=== PATIENT | female | born 1980 | race Two or more races ===

== ENCOUNTER 2021-09-18 11:44 | Outpatient (REF) | payer MEDICAID, SELFPAY ==
--- NOTE | ~2021-09-18 | XR_ITS ---
EXAMINATION: XR WRIST, LEFT CLINICAL INFORMATION: Left wrist pain. COMPARISON: None TECHNIQUE: PA, lateral, and oblique views of the left wrist. FINDINGS: The bones and soft tissues are normal. No fracture. Alignment is anatomic with normal joint spaces. No erosions or abnormal soft tissue calcifications. XR/XR wrist LT min 3V IMPRESSION: Normal left wrist.
== END 2021-09-18 11:45 | disposition home or self-care (01) ==
LOC: HO.XRAY 11:44
PROVIDERS: Visit Provider General Practice
DX: M25.532 Pain in left wrist (principal)
CPT/HCPCS: 73110

== ENCOUNTER 2024-12-03 15:58 | Outpatient (REF) | payer MEDICAID, SELFPAY ==
--- OUTSIDE RECORDS SUMMARY | 2024-12-03 16:01 | XMS_ITS ---
Author Organization [employer] [facility] Address [address] [id number] Care Team Providers Care Break Out Worker Name Role Phone FRANKLINUZMA Cantu Unavailable [phone] Allergies No Known Allergies REASON FOR VISIT Depo Medications Medication SIG (Take, Route, Frequency, Duration) Notes Start Date End Date Status Nitrofurantoin Monohyd Macro 100 MG 1 capsule Orally Twice a day (every 12 hrs( for 7 days 04/22/2024 Not-Taking Depo-Provera 150 MG/ML 1 mL Intramuscula r Every 13-15 weeks for 91 days Active Social History Sex Assigned At : Social History Observation Description Sex Assigned At Female Section Notes: Declines aptma Vital Signs Blood pressure systolic 120 mm Hg 10/28/19 25 Blood pressure diastolic 54 mm Hg 025 Height 60 in 10/28/2024 Weight 166.2 lbs 10/28/2024 BMI 32.46 kg/m2 10/28/2024 Encounters Encounter Location Date Provider Diagnosis [address] [id number] 10/28/2024 UZMA REID Encounter for surveillance of injectable contraceptive Z30.42 Assessments Encounter Date Diagnosis (ICD Code) Assessment Notes Treatment Notes Treatment Clinical Notes Section Notes 10/28/2024 Encounter for surveillance of injectable contraceptive (ICD-10 - Z30.42) Depo administered in office without issue. Return in 13-15 weeks for repeat injection. Reviewed clt's questions and concerns. There is no definite limit on how long someone can stay on Depo. Used to be recommended to limit to 2 years. Bone density does decrease with Depo use but studies find that it returns once off of the method. Did review that clt may want to consider coming off of Depo prior to typical menopause age to allow bone denisity to return. Reviewed importance of Ca+ and Vit D supplementation and weight bearing exercise. Reviewed some observational studies have found an association with some types of rare brain tumors in association with Depo use but that event rates are very low 0.05 vs 0.01 (non users) percent (per UpToDate). No new precautions have been made by FDA with Depo use around this. Spent 15 minutes doing the following: Chart Prep Obtaining/revi dolan history Performing medically necessary exam Counseling/Controller Instructor rdination of Care Documenting the visit Educating the patient Ordering medication/vivien t/procedures Established Patient: 03017 10 Minutes Plan Of Treatment Medication Medication Name Sig Start Date Stop Date Notes Depo-Provera 150 MG/ML 1 mL Intramuscula r Every 13-15 weeks for 91 days Treatment Notes Assessment Notes Encounter for surveillance o f injectable contraceptive Depo administered in office without issue. Return in 13-15 weeks for repeat injection. Reviewed clt's questions and concerns. There is no definite limit on how long someone can stay on Depo. Used to be recommended to limit to 2 years. Bone density does decrease with Depo use but studies find that it returns once off of the method. Did review that clt may want to consider coming off of Depo prior to typical menopause age to allow bone denisity to return. Reviewed importance of Ca+ and Vit D supplementation and weight bearing exercise. Reviewed some observational studies have found an association with some types of rare brain tumors in association with Depo use but that event rates are very low 0.05 vs 0.01 (non users) percent (per UpToDate). No new precautions have been made by FDA with Depo use around this. Next Appt Details Follow Up: next depo due 01/21 to 02/10, Reason: depo, annual/pap Provider Name:UZMA REID, 06/2025 11:00:00 AM, [address] [place] [address], [phone], Medications Administered Medication Instructions Date of Administration Dosage Notes Medroxyprogesterone Acetate 10/28/2024 150 mg Progress Notes * Malick AGUDELO:1980 (44 yo F)Acc No.[id number]:10/28/2024 Progress Notes Patient:Qasim MCQUEEN Provider:?UZMA REDI :1980???Age:44 Y???Sex:Female D ate:10/28/2024 Address:[address] [place], [place] [id number] Subjective: * Chief Complaints: * ???Depo * HPI: ???Visit Narrative:?Reason for the visit:?Depo visit.?Current form of control:?Depo.?Presenting Symptoms:?Concerns about the depo causing brain tumors/ bone disease.?LMP:?06/25/24 - spotting only.?Last date of UPI:?10/05/24.?Other Notes for the Clinician:?Client notified that the depo is a short term recomended bc method for abut 2 years. Client ok with being on depo for the whole 2 years then stopping to take a break or revisit a new method when thew time comes.?Declines testing On time Depo today. Happy with method and would like to continue.?Over due for repeat pap after abn pap and DEBRA 1 on colpo. * ROS:?General/Constitutional:?Denies?Headache.?Denies?Weight gain.?Denies?Weight loss.?Breast:?Denies?Breast pain.?Gastrointestinal:?Denies?Nausea.?Psychiatric:?Denies?Mood concerns.? * Medical History:? * Reconstructive Surgeon History:?Abnormal pap smear:?colpo - DEBRA 1, repeat 1 year at .? control:?Depo.?Last menstrual period:?06/25/2024.?Last pap smear date:?02/2023 colpo DEBRA 1. Repeat in a year01/30/23 ASCUS, pos additional high risk HPV subtypes.?Menarche: ?Age of menarche?13 ???Periods:?every month, normal blood loss.?Sexual activity:?currently sexually active, with men.?Sexually Transmitted Diseases (STDs):?none.?Unprotected sex in the last 5 days?:?No.?Unprotected sex in the past 10 days?:?No.? * OB History:?Total pregnancies:?2.?Total living children:?2.?C section(s):?2.? # 1:?Primary .? # 2:?Repeat .? * Surgical History:?No Surgica l History documented. * Hospitalization/Major Diagno stic Procedure:? 08/14/07 * Family History:? Siblings - Diabetes, Heart issues. * Social History:?Food Access:?Food Access?The Client's current access to food is?Secure Food Access ???Housing:?Housing?The client's current living situation is:?stable housing ???Reproductive Life Plan:?Reproductive Life Plan?Do you want to have children??No, I don't want to have children ?How sure are you that you will be able to use your control method without any problems??Very sure ?People's plans change. 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 ?Your sexual activities include:?oral intercourse, vaginal intercourse ?Do you use condoms??No ?Date of last unprotected intercourse:?10/05/2024 ?Number of partners in past 3 months:?1 ?Number of partners in past year:?1 ?Does your partner(s) currently have any STIs??No ???HIV Risk Assessment:?Additional Questions?Is an HIV Risk Assessment being conducted??No ???PrEP for HIV:?PrEP for HIV?Is the client interested in beginning/continuing PrEP for HIV??No ???Relationships:?Relationships?Has the client experienced any of the following:?Client has never experienced harmful relationships ???Human Trafficking:?Human Trafficking?Experienced:?No ???Tobacco Use:?Tobacco Use?Do you/have you used tobacco??No ?Tobacco Smoking Status?Unknown if ever smoked ???Drugs/Alcohol:?Drug/Alcohol Use?Do you or have you used drugs??No ?Do you or have you used alcohol??Yes, currently Occasional use ???Counseling Provided:?Counseling Provided?Please indicate the length of time, in minutes, that counseling was provided.?5 ?Counseling Was Provided By:?lydper ???Declines aptma. * Medications:?TakingDepo-Prov era 150 MG/ML Suspension 1 mL Intramuscular Every 13-15 weeks Taking Depo-Provera 150 MG/ML Suspension 1 mL Intramuscular Every 13-15 weeks Not-Taking/PRNNitrofurantoin Monohyd Macro 100 MG Capsule 1 capsule Orally Twice a day (every 12 hrs( Medication List reviewed and reconciled with the patientNot-Taking/PRN Nitrofurantoin Monohyd Macro 100 MG Capsule 1 capsule Orally Twice a day (every 12 hrs( Medication List reviewed and reconciled with the patient * Allergies:?N.K.D.A.no[Allerg ies Verified] Objective: * Vitals:?BP:120/54mm Hg, Ht: 60 in, Wt:166.2lbs, BMI:32.46Index, Ht-cm: 152.4, Wt-k.39. * Examination: ???General Examination: ?GENERAL APPEARANCE:?pleasant, in no acute distress.?SKIN:?no suspicious lesions, warm and dry.?NEUROLOGIC:?alert and oriented.? Assessment: * Assessment: 1.?Encounter for surveillanc e of injectable contraceptive - Z30.42 (Primary)??? Spent 15 minutes doing the f ollowing: Chart Prep Obtaining/reviewing history Performing medically necessary exam Counseling/Coordination of Care Documenting the visit Educating the patient Ordering medication/test/procedures Established Patient: 67074 10 Minutes Plan: * Treatment: * Therapeutic Injections:? Medroxyprogesterone Acetate : 150 mg (Route: Intramuscular) given by UZMA REID CNM on left deltoid (Encounter for surveillance of injectable contraceptive) * Procedure Codes:?J1050 Depo 150 mg * Follow Up:?next depo due 01/21 to 02/10 (Reason: depo, annual/pap) * Billing Information: * Visit Code:? 79635 Existing - Minimal Complexity (IN USE). * Procedure Codes:? J1050 Depo 150 mg. * Sign off status: Completed true * Provider:UBALDO REID Date:?10/28/2024 Generated for Gato pierce/Keysha/eTsuryaitting on:?12/03/2024 09:14 AM EST History and Physical Notes * HPI (History of Present Illness) Category Sub-Category Detail Notes Category Not es Visit Narrative Reason for the visit: Depo visit Declines testing On time Depo today. Happy with method and would like to continue. Over due for repeat pap after abn pap and DEBRA 1 on colpo Current form of control: Depo Presenting Symptoms: Concerns about the depo causing brain tumors/ bone disease Other Notes for the Clinician: Client no tified that the depo is a short term recomended bc method for abut 2 years. Client ok with being on depo for the whole 2 years then stopping to take a break or revisit a new method when thew time comes LMP: 06/25/24 - spotting on ly Last date of UPI: 10/05/24 Examination Category Sub-Category Detail Notes Category Not es General Examination GENERAL APPEARANCE: pleasant, in n o acute distress NEUROLOGIC: alert and oriented SKIN: no suspicious lesion s, warm and dry
--- OUTSIDE RECORDS SUMMARY | 2024-12-03 16:01 | XMS_ITS ---
Author Organization [facility] Address [address] [id number] Care Team Providers Care Pmo Lead Name Role Phone UZMA REID Unavailable [phone] Allergies No Known Allergies Results Component Value Reference Range Notes HBsAg Screen-[id number] Reviewed date:07/20/2024 11:50:07 AM Interpretation:Negative Performing Lab:[facility], [address], [address], [place], Phone - [phone], Director - [facility] Notes/Report: Clinical Information:SRC:Vaginal HBsAg Screen Negative Negative Hepatitis B Surf Ab Quant-[id number] Reviewed date:07/20/2024 11:21:32 AM Interpretation:Not Immune Performing Lab:[facility] [place], [address], [address], [place], Phone - [phone], Director - [facility] Notes/Report: Clinical Information:SRC:Vaginal Hepatitis B Surf Ab Quant <3.5 Immunity>10 mIU /mL Status of Immunity Anti-HBs Level Inconsistent with Immunity 0.0 - 10.0 Consistent with Immunity >10.0 T pallidum Screening [place] -[id number] Reviewed date:07/20/2024 11:50:37 AM Interpretation:Negative Performing Lab:[facility] [place], [address], [address], [place], Phone - [phone], Director - [facility] Notes/Report: Clinical Information:SRC:Vaginal T pallidum Antibodies Non Reactive Non Reactive HIV Ab/p24 Ag with Reflex-[id number] Reviewed date:07/20/2024 11:50:29 AM Interpretation:Negative Performing Lab:[facility] [place], [address], [address], [place], Phone - [phone], Director - [facility] Notes/Report: Clinical Information:SRC:Vaginal HIV Ab/p24 Ag Screen Non Reactive Non Reactive HIV-1/HIV-2 antibodies and HIV-1 p24 antigen were NOT detected. There is no laboratory evidence of HIV infection. HIV Negative Ct, Ng, Trich vag by RUTH-[id number] Reviewed date:07/22/2024 09:25:40 AM Interpretation:Negative Performing Lab:[facility] [place], [address], [address], [place], Phone - [phone], Director - [facility] Notes/Report: Clinical Information:SRC:Vaginal Chlamydia by RUTH Negative Negative Gonococcus by RUTH Negative Negative Trich vag by RUTH Negative Negative HCV Antibody-[id number] Reviewed date:07/20/2024 11:50:17 AM Interpretation:Negative Performing Lab:[facility] [place], [address], [address], [place], Phone - [phone], Director - [facility] Notes/Report: Clinical Information:SRC:Vaginal Hep C Virus Ab Non Reactive Non Reactive HCV antibody alone does not differentiate between previously resolved infection and active infection. Equivocal and Reactive HCV antibody results should be followed up with an HCV RNA test to support the diagnosis of active HCV infection. REASON FOR VISIT Depo Medications Medication SIG (Take, Route, Frequency, Duration) Notes Start Date End Date Status Depo-Provera 150 MG/ML 1 mL Intramuscula r Every 13-15 weeks for 91 days Active Nitrofurantoin Monohyd Macro 100 MG 1 capsule Orally Twice a day (every 12 hrs( for 7 days 04/22/2024 Active Social History Sex Assigned At : Social History Observation Description Sex Assigned At Female Section Notes: Aptima/ bw Vital Signs Blood pressure systolic 122 mm Hg 07/17/20 24 Blood pressure diastolic 70 mm Hg 024 Height 60 in 07/17/2024 Weight 160.8 lbs 07/17/2024 BMI 31.4 kg/m2 07/17/2024 Encounters Encounter Location Date Provider Diagnosis [address] [phone] 07/17/2024 UZMA REID Encounter for surveillance of injectable contraceptive Z30.42 ; Encounter for screening for infections with a predominantly sexual mode of transmission Z11.3 ; Encounter for screening for human immunodeficiency virus [HIV] Z11.4 ; Screening for other viral diseases Z11.59 and Other problems related to lifestyle Z72.89 Assessments Encounter Date Diagnosis (ICD Code) Assessment Notes Treatment Notes Treatment Clinical Notes Section Notes 07/17/2024 Encounter for surveillance of injectable contraceptive (ICD-10 - Z30.42) On time Depo today. No CI's to continue with Depo today. Need 2 out of 3 Sections from A-C Section A) Problems (only need one from below) Section B) Data (need at least one of the following categories in this section) Category 1: (Choose three of the following): Order Unique tests Section C) Risk (any one of the following) Prescription drug management (this counts for the whole section) 07/17/2024 Encounter for screening for infections with a predominantly sexual mode of transmission (ICD-10 - Z11.3) Discussed STI risks, screenings that are available through [facility] and safe sex. For Hep B and C screening today. Clt aware of lab processing times and how to view results on portal and how positive results will be communicated Need 2 out of 3 Sections from A-C Section A) Problems (only need one from below) Section B) Data (need at least one of the following categories in this section) Category 1: (Choose three of the following): Order Unique tests Section C) Risk (any one of the following) Prescription drug management (this counts for the whole section) 07/17/2024 Encounter for screening for human immunodeficiency virus [HIV] (ICD-10 - Z11.4) Need 2 out of 3 Sections from A-C Section A) Problems (only need one from below) Section B) Data (need at least one of the following categories in this section) Category 1: (Choose three of the following): Order Unique tests Section C) Risk (any one of the following) Prescription drug management (this counts for the whole section) 07/17/2024 Screening for other viral diseases (ICD-10 - Z11.59) Need 2 out of 3 Sections from A-C Section A) Problems (only need one from below) Section B) Data (need at least one of the following categories in this section) Category 1: (Choose three of the following): Order Unique tests Section C) Risk (any one of the following) Prescription drug management (this counts for the whole section) 07/17/2024 Other problems related to lifestyle (ICD-10 - Z72.89) Need 2 out of 3 Sections from A-C Section A) Problems (only need one from below) Section B) Data (need at least one of the following categories in this section) Category 1: (Choose three of the following): Order Unique tests Section C) Risk (any one of the following) Prescription drug management (this counts for the whole section) 07/17/2024 Other Need 2 out of 3 Sections from A-C Section A) Problems (only need one from below) Section B) Data (need at least one of the following categories in this section) Category 1: (Choose three of the following): Order Unique tests Section C) Risk (any one of the following) Prescription drug management (this counts for the whole section) Plan Of Treatment Medication Medication Name Sig Start Date Stop Date Notes Depo-Provera 150 MG/ML 1 mL Intramuscula r Every 13-15 weeks for 91 days Treatment Notes Assessment Notes Encounter for surveillance o f injectable contraceptive On time Depo today. No CI's to continue with Depo today. Encounter for screening for infections with a predominantly sexual mode of transmission Discussed STI risks, screenings that are available through [facility] and safe sex. For Hep B and C screening today. Clt aware of lab processing times and how to view results on portal and how positive results will be communicated Next Appt Details Follow Up: Next Injection Du e 10/10 to 10/30, Reason: Provider Name:UZMA REID, 06/2025 11:00:00 AM, [address] [place] [address], [place], [place], [phone], Medications Administered Medication Instructions Date of Administration Dosage Notes Medroxyprogesterone Acetate 07/17/2024 150 mg Progress Notes * Qasim ENGLISHDOB:1980 (43 yo F)Acc No.[id number]:07/17/2024 Progress Notes Patient:?Qasim ENGLISH Provider:?UZMA REID :1980???Age:43 Y???Sex:Female D ate:07/17/2024 Address:[address] [place], [place] [address] [id number] Subjective: * Chief Complaints: * ???Depo * HPI: ???Visit Narrative:?Reason for the visit:?Depo visit/ Routine testing?.?Current form of control:?Depo?.?Presenting Symptoms:?No concerns.?LMP:?06/25/2024.?Last date of UPI:?06/09/24.?Aptima/ bw In window Depo today. No concerns. Tx'd for UTI back in April, symptoms have resolved. Would like STI screening today. Concerns for possible outside partners. No symptoms of concern. * ROS:?General/Constitutional:?Comments?Has no complaints.? * Medical History:? 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 control:?Depo.?Last menstrual period:?06/25/2024.?Last pap smear date:?02/2023 colpo [...] ?Sexually active with:?Men ?Number of male partners?1 ?Your sexual activities include:?oral intercourse, vaginal intercourse ?Date of last unprotected intercourse:?06/09/2024 ?Number of partners in past 3 months:?1 ?Number of partners in past year:?1 ?Does your partner(s) currently have any STIs??No ???HIV Risk Assessment:?Additional Questions?Is an HIV Risk Assessment being conducted??Yes ?Have you been tested for HIV before??Yes ?Did you have a blood transfusion prior to 1985??No ?Do you have an unlicensed body piercing or tattoo??No ???PrEP for HIV:?PrEP for HIV?Is the client interested in beginning/continuing PrEP for HIV??No ???Relationships:?Relationships?Has the client experienced any of the following:?Client has never experienced harmful relationships ???Human Trafficking:?Human Trafficking?Experienced:?No ???Tobacco Use:?Tobacco Use?Do you/have you used tobacco??No ?Tobacco Smoking Status?Unknown if ever smoked ???Drugs/Alcohol:?Drug/Alcohol Use?Do you or have you used drugs??No ?Do you or have you used alcohol??Yes, currently ???Counseling Provided:?Counseling Provided?Please indicate the length of time, in minutes, that counseling was provided.?6 ?Counseling Was Provided By:?lydper ???Aptima/ bw. * Medications:?TakingNitrofura ntoin Monohyd Macro 100 MG Capsule 1 capsule Orally Twice a day (every 12 hrs( Depo-Provera 150 MG/ML Suspension 1 mL Intramuscular Every 13-15 weeks Medication List reviewed and reconciled with the patientTaking Nitrofurantoin Monohyd Macro 100 MG Capsule 1 capsule Orally Twice a day (every 12 hrs( Taking Depo-Provera 150 MG/ML Suspension 1 mL Intramuscular Every 13-15 weeks Medication List reviewed and reconciled with the patient * Allergies:?N.K.D.A.no[Allerg ies Verified] Objective: * Vitals:?BP:122/70mm Hg, Ht: 60 in, Wt:160.8lbs, BMI:31.4Index, Ht-cm: 152.4, Wt- k.94. * Examination: ???General Examination: ?GENERAL APPEARANCE:?in no acute distress,.?SKIN:?no suspicious lesions, warm and dry.?NEUROLOGIC:?alert and oriented.? Assessment: * Assessment: 1.?Encounter for surveillanc e of injectable contraceptive - Z30.42 (Primary)???2.?Encounter for screening for infections with a predominantly sexual mode of transmission - Z11.3???3.?Encounter for screening for human immunodeficiency virus [HIV] - Z11.4???4.?Screening for other viral diseases - Z11.59???5.?Other problems related to lifestyle - Z72.89??? Need 2 out of 3 Sections fro m A-C Section A) Problems (only need one from below) Section B) Data (need at least one of the following categories in this section) Category 1: (Choose three of the following): Order Unique tests Section C) Risk (any one of the following) Prescription drug management (this counts for the whole section) Plan: * Treatment: 2.?Encounter for screening f or infections with a predominantly sexual mode of transmission?LAB: T pallidum Screening [place]-[id number] (Collection Date & Time - 07/17/2024 09:32 AM) ? Value Reference Range ?T pallidum Antibodies Non Reactive N on Reactive - * This lab was reviewed by BUBBA PURVIS on 07/20/2024 at 11:50 AM EDT ?LAB: Ct, Ng, Trich vag by RUTH-[id number] (Collection Date & Time - 07/17/2024 09:32 AM)* ? Value Reference Range ?Chlamydia by RUTH Negative Negati ve - * ?Gonococcus by RUTH Negative Negat marcelo - * ?Trich vag by RUTH Negative Negati ve - * This lab was reviewed by BUBBA PURVIS on 07/22/2024 at 09:25 AM EDT Notes: Discussed STI risks, screenings that are available through [facility] and safe sex. For Hep B and C screening today. Clt aware of lab processing times and how to view results on portal and how positive results will be communicated ??3.?Encounter for screening for human immunodeficiency virus [HIV]?LAB: HIV Ab/p24 Ag with Reflex-[id number] (Collection Date & Time - 07/17/2024 09:32 AM)* ? Value Reference Range ?HIV Ab/p24 Ag Screen Non Reactive No n Reactive - * This lab was reviewed by BUBBA PURVIS on 07/20/2024 at 11:50 AM EDT 4.?Screening for other viral diseases?LAB: HBsAg Screen-[id number] (Collection Date & Time - 07/17/2024 09:32 AM)* ? Value Reference Range ?HBsAg Screen Negative Negative - * This lab was reviewed by BUBBA PURVIS on 07/20/2024 at 11:50 AM EDT ?LAB: Hepatitis B Surf Ab Quant-[id number] (Collection Date & Time - 07/17/2024 09:32 AM)* ? Value Reference Range ?Hepatitis B Surf Ab Quant <3.5 L Immunity>10 - mIU/mL * UZMA REID 07/20/2024 11:21:1 1 AM EDT > Your are not showing immunity to Hep B. You can consider Hep B vaccine if you would like. This can be scheduled with your PCP, pharmacy or sometimes [facility] program has access to Hep B vaccine. Please call with questionsThis lab was reviewed by UZMA REID on 07/20/2024 at 11:21 AM EDT ?LAB: HCV Antibody-[id number] (Collection Date & Time - 07/17/2024 09:32 AM)* ? Value Reference Range ?Hep C Virus Ab Non Reactive Non Reac tive - * This lab was reviewed by BUBBA PURVIS on 07/20/2024 at 11:50 AM EDT * Therapeutic Injections:? Medroxyprogesterone Acetate : 150 mg (Route: Intramuscular) given by UZMA REID CNM on left deltoid (Encounter for surveillance of injectable contraceptive) * Procedure Codes:?J1050 Depo 150 [id number] HIV Counseling/Testing - [facility] ONLY * Follow Up:?Next Injection Du e 10/10 to 10/30 * Billing Information: * Visit Code:? 75131 Existing - Medium Complexity (IN USE). * Procedure Codes:? J1050 Depo 150 mg. [id number] HIV Counseling/Testing - [facility] ONLY. * Sign off status: Completed true * Provider:?UZMA REID Date:?07/17/2024 Generated for Gato pierce/Keysha/Ofelia on:?12/03/2024 04:01 PM EST History and Physical Notes * HPI (History of Present Illness) Category Sub-Category Detail Notes Category Not es Visit Narrative Reason for the visit: Depo visit/ Rout ine testing Aptima/ bw In window Depo today. No concerns. Tx'd for UTI back in April, symptoms have resolved. Would like STI screening today. Concerns for possible outside partners. No symptoms of concern Current form of control: Depo Presenting Symptoms: No concerns LMP: 06/25/2024 Last date of UPI: 06/09/24 Examination Category Sub-Category Detail Notes Category Not es General Examination GENERAL APPEARANCE: in no acute di stress, NEUROLOGIC: alert and oriented SKIN: no suspicious lesion s, warm and dry
--- OUTSIDE RECORDS SUMMARY | 2024-12-03 16:01 | XMS_ITS ---
Author Organization [facility] Address [address] [place] [id number] Care Team Providers Care Clinical Pharmacy Technician Name Role Phone UZMA REID Unavailable [phone] REASON FOR VISIT Depo Social History Sex Assigned At : Social History Observation Description Sex Assigned At Female Encounters Encounter Location Date Provider Diagnosis [address] [phone] UZMA REID Plan Of Treatment Next Appt Details Provider Name:UZMA REID, 06/2025 11:00:00 AM, [address] [place] [address], [phone], Progress Notes * Qasim ENGLISHDOB:1980 (44 yo F)Acc No.[id number]:10/16/2024 Progress Notes Patient:?Qasim ENGLISH Provider:UBALDO REID :1980???Age:43 Y???Sex:Female D ate:10/16/2024 Address:[address] [place] [id number] Subjective: * Chief Complaints: * ???1. Depo. * Medical History:? Objective: * Vitals:? Assessment: Plan: * Treatment: * Billing Information: * Visit Code:? * Procedure Codes:? * Electronic signature of JAGRUTI REID CNM on 12/03/2024 at 04:01 PM EST Sign off status: Pending * Provider:UBALDO REID Date:?10/16/2024 Generated for Gato pierce/Keysha/Ofelia on:?12/03/2024 04:01 PM EST
--- OUTSIDE RECORDS SUMMARY | 2024-12-03 16:01 | XMS_ITS | Patient Health Record ---
Author Organization [facility] Address [address] [id number] Care Team Providers Care Piercing Specialist Name Role Phone UZMA REID Unavailable [phone] MartinezAlissa morocho Unavailable [phone] Allergies No Known Allergies Results Component Value Reference Range Notes Test, Urine Reviewed date:04/22/2024 10:35:18 AM Interpretation:Negative Performing Lab: Notes/Report: Negative Test, Urine neg Lot # [id number] Exp. Date 04/22/2025 Urinalysis Reviewed date:04/28/2024 11:41:00 AM Interpretation:Abnormal Performing Lab: Notes/Report: Abnormal Leukocytes - Nitrates pos Uro 0.2 Protein - pH 6.0 Blood - Spec [place] 1.025 Ketones - Bilirubin - Glucose - Chlamydia/GC Amplification-1 [id number] Reviewed date:04/28/2024 11:48:10 AM Interpretation:Negative Performing Lab:[facility], [address], [address], [place], Phone - [phone], Director - [facility] Notes/Report: Chlamydia trachomatis, RUTH Negative Negative Neisseria gonorrhoeae, RUTH Negative Negative Trich vag by [id number] Reviewed date:04/28/2024 11:48:19 AM Interpretation:Negative Performing Lab:[facility]faro, [address], [address], [place], Phone - [phone], Director - [facility] Notes/Report: Trich vag by RUTH Negative Negative HCV Antibody-[id number] Reviewed date:07/20/2024 11:50:17 AM Interpretation:Negative Performing Lab:[facility] Alfar[facility], [address], [address], [place], Phone - [phone], Director - [facility] Notes/Report: Clinical Information:SRC:Vaginal Hep C Virus Ab Non Reactive Non Reactive HCV antibody alone does not differentiate between previously resolved infection and active infection. Equivocal and Reactive HCV antibody results should be followed up with an HCV RNA test to support the diagnosis of active HCV infection. Ct, Ng, Trich vag by [id number] Reviewed date:07/22/2024 09:25:40 AM Interpretation:Negative Performing Lab:[facility] [place], [address], [address], [place], Phone - [phone], Director - [facility] Notes/Report: Clinical Information:SRC:Vaginal Chlamydia by RUTH Negative Negative Gonococcus by RUTH Negative Negative Trich vag by RUTH Negative Negative HIV Ab/p24 Ag with Reflex-[id number] Reviewed date:07/20/2024 11:50:29 AM Interpretation:Negative Performing Lab:[facility] [place], [address], [address], [place], Phone - [phone], Director - [facility] Notes/Report: Clinical Information:SRC:Vaginal HIV Ab/p24 Ag Screen Non Reactive Non Reactive HIV-1/HIV-2 antibodies and HIV-1 p24 antigen were NOT detected. There is no laboratory evidence of HIV infection. HIV Negative T pallidum Screening [place] -[id number] Reviewed date:07/20/2024 11:50:37 AM Interpretation:Negative Performing Lab:[facility] [place], [address], [address], [place], Phone - [phone], Director - [facility] Notes/Report: Clinical Information:SRC:Vaginal T pallidum Antibodies Non Reactive Non Reactive Hepatitis B Surf Ab Quant-00 6530 Reviewed date:07/20/2024 11:21:32 AM Interpretation:Not Immune Performing Lab:[facility] [place], [address], [address], [place], Phone - [phone], [facility] - [facility] Notes/Report: Clinical Information:SRC:Vaginal Hepatitis B Surf Ab Quant <3.5 Immunity>10 mIU /mL Status of Immunity Anti-HBs Level Inconsistent with Immunity 0.0 - 10.0 Consistent with Immunity >10.0 HBsAg Screen-[id number] Reviewed date:07/20/2024 11:50:07 AM Interpretation:Negative Performing Lab:[facility], [address], [address], [place], Phone - [phone], Director - [facility] Notes/Report: Clinical Information:SRC:Vaginal HBsAg Screen Negative Negative Reason For Referral No Information Medications Medication SIG (Take, Route, Frequency, Duration) Notes Start Date End Date Status Nitrofurantoin Monohyd Macro 100 MG 1 capsule Orally Twice a day (every 12 hrs( for 7 days 04/22/2024 Not-Taking Depo-Provera 150 MG/ML 1 mL Intramuscula r Every 13-15 weeks for 91 days Active Social History Sex Assigned At : Social History Observation Description Sex Assigned At Female Section Notes: Clt declines bw Aptima/ declines bw Aptima/ bw/ pt Aptima/ bw Declines aptma Vital Signs Blood pressure diastolic 54 mm Hg 10/28/2024 Height 60 in 10/28/2024 Blood pressure systolic 120 mm Hg 10/28/2024 Weight 166.2 lbs 10/28/2024 BMI 32.46 kg/m2 10/28/2024 Encounters Encounter Location Date Provider Diagnosis [address] [id number] 04/22/2024 UZMA REID Encounter for surveillance of injectable contraceptive Z30.42 ; Encounter for test, result negative Z32.02 ; Urinary Tract Infection N39.0 ; Urinary frequency R35.0 ; Encounter for screening for infections with a predominantly sexual mode of transmission Z11.3 and Other problems related to lifestyle Z72.[address] [id number] 07/17/2024 UZMA REID Encounter for surveillance of injectable contraceptive Z30.42 ; Encounter for screening for infections with a predominantly sexual mode of transmission Z11.3 ; Encounter for screening for human immunodeficiency virus [HIV] Z11.4 ; Screening for other viral diseases Z11.59 and Other problems related to lifestyle Z72.[address] [id number] 10/28/2024 UZMA REID Encounter for surveillance of injectable contraceptive Z30.42 Assessments Encounter Date Diagnosis (ICD Code) Assessment Notes Treatment Notes Treatment Clinical Notes Section Notes 04/22/2024 Encounter for surveillance of injectable contraceptive (ICD-10 - Z30.42) No CI's to restart on Depo at this time. BUM x 7 days. Need 2 out of 3 Sections from A-C Section A) Problems (only need one from below) Section B) Data (need at least one of the following categories in this section) Category 1: (Choose three of the following): Order Unique tests Section C) Risk (any one of the following) Prescription drug management (this counts for the whole section) 04/22/2024 Encounter for test, result negative (ICD-10 - Z32.02) Need 2 out of 3 Sections from [...] for the whole section) 07/17/2024 Encounter for surveillance of injectable contraceptive [...] management (this counts for the whole section) 10/28/2024 Encounter for surveillance of injectable contraceptive [...] 15 minutes doing the following: Chart Prep Obtaining/rev iewing history Performing medically necessary exam Counseling/Co ordination of Care Documenting the visit Educating the patient Ordering medication/te st/procedures Established Patient: 11119 10 Minutes 07/17/2024 Encounter for screening for human immunodeficiency [...] management (this counts for the whole section) 04/22/2024 Urinary Tract Infection (ICD-10 - N39.0) UA with positive nitrates. Is not a clean catch. Clt unable to provider another sample. Clt would like to do presumptive tx at this time based on results and symptoms. Clt to notify if symptoms not improving in the next 24-48hrs. Need 2 out of 3 Sections from A-C Section A) Problems (only need one from below) Section B) Data (need at least one of the following categories in this section) Category 1: (Choose three of the following): Order Unique tests Section C) Risk (any one of the following) Prescription drug management (this counts for the whole section) 04/22/2024 Urinary frequency (ICD-10 - R35.0) Need 2 out of 3 Sections from [...] management (this counts for the whole section) 04/22/2024 Encounter for screening for infections with a predominantly sexual mode of transmission (ICD-10 - Z11.3) Discussed STI risks, screenings that are available through [facility] and safe sex. Clt aware of lab processing times and [...] management (this counts for the whole section) 04/22/2024 Other problems related to lifestyle (ICD-10 - [...] management (this counts for the whole section) 04/22/2024 Other Advised to schedule fu pap screening Need 2 out of 3 Sections from [...] for the whole section) Plan Of Treatment Next Appt Details Provider Name:UZMAMARY ELLEN REID, 06/2025 11:00:00 AM, [address] [place] [address], [phone], Insurance Providers Payer Name Payer Address Payer Phone Subscriber Number Group Number Insured Name Patient Relationship to Insured Coverage Start Date Coverage End Date CT MEDICAID ATT CLAIMS [address] [place] [address] [id number] Qasim English Self - patient is the insured Medications Administered Medication Instructions Date of Administration Dosage Notes Depo 150mg 03/27/2023 Depo 150mg 06/21/2023 Depo 150mg 09/20/2023 Medroxyprogesterone Acetate 04/22/2024 150 mg Medroxyprogesterone Acetate 07/17/2024 150 mg Medroxyprogesterone Acetate 10/28/2024 150 mg Medical (General) History Medical History History ICD Code Asthma - teenager x2 Abnormal pap/pos HPV 02/10 Surgical History Surgery Date(Month/Year) Hospitalization History Reason Date(Month/Year) 08/14/07
[2024-12-03 16:22] LABS: Appearance Urine Turbid; Color Urine Yellow; Glucose Urine UA Negative (Negative); Leukocyte Esterase Urine Trace (Negative); Nitrite Urine Negative (Negative); PH 6.5 (5.0-9.0); Specific Gravity - Urine 1.025 (1.005-1.025); UMIC TRIGGER UACC YES; Urine Blood Negative (Negative); Urine Ketones Negative (Negative); Urine Protein Trace mg/dL (Neg-Trace)
[2024-12-03 16:34] LABS: Bacteria Urine 4+ (None Seen); Calcium Oxalate Crystals Urine Present; Hyaline Casts Urine 0-2 /LPF (0-2); RBC Urine 0-2 /HPF (0-2); Squamous Epithelial Cell Urine >20 /HPF (0-2); WBC Urine 0-5 /HPF (0-5)
== END 2024-12-03 15:59 | disposition home or self-care (01) ==
LOC: HO.HHCLNP 15:58
PROVIDERS: Visit Provider Nurse Practitioner Primary Care
DX: R30.0 Dysuria (principal)
CPT/HCPCS: 81001

== ENCOUNTER 2025-01-08 13:40 | Outpatient (REF) | payer MEDICAID, SELFPAY ==
[2025-01-08 16:22] LABS: MANUAL DIFF FLAG NO
[2025-01-08 16:32] LABS: Basophils Absolute Auto 0.1 X10*3/uL (0.0-0.2); Basophils Percent Auto 0.8 % (0-2); Eosinophils Absolute Auto 0.2 X10*3/uL (0.0-0.4); Eosinophils Percent Auto 3.3 % (0-4); Hematocrit 42.8 % (37.0-47.0); Hemoglobin 14.3 g/dl (12.0-16.0); Imm Gran Abs Auto 0.01 X10*3/uL (0.00-0.03); Imm Gran Pct Auto 0.2 % (0.0-0.4); Lymphocytes Absolute Auto 2.5 X10*3/uL (1.2-4.9); Lymphocytes Percent Auto 39.6 % (20-40); Mean Corpuscular HGB Conc 33.4 g/dl (31.0-35.0); Mean Corpuscular Hemoglobin 29.6 pg (27.0-33.0); Mean Corpuscular Volume 88.6 fL (80.0-98.0); Mean Platelet Volume 11.7 fL (9.4-12.3); Monocytes Absolute Auto 0.6 X10*3/uL (0.1-1.2); Monocytes Percent Auto 8.6 % (2-11); Neutrophils Percent Auto 47.5 % (45-73); Platelet Count 210 X10*3/uL (160-400); Red Blood Count 4.83 X10*6/uL (4.20-5.50); Red Cell Distribution Width 12.7 % (11.0-16.0); White Blood Count 6.4 X10*3/uL (4.8-10.8)
[2025-01-08 17:45] LABS: Anion Gap 10 (12-20); Blood Urea Nitrogen 12 mg/dL (9-16); Calcium 9.2 mg/dL (8.4-10.2); Carbon Dioxide 24 mmol/L (22-29); Chloride 112 mmol/L (96-108); Cholesterol 146 mg/dL (<200); Estimated Glomerular Filt Rate > 60; Glucose Random 102 mg/dL (60-115); HDL Cholesterol 50 mg/dL (>40); LDL Cholesterol Calculated 82 mg/dL (<100); Potassium 3.9 mmol/L (3.3-5.1); Sodium 142 mmol/L (135-145); Triglycerides 72 mg/dL (<150)
[2025-01-08 18:03] LABS: TSH reflex Free T4 2.02 uIU/mL (0.32-4.0)
[2025-01-11 04:21] LABS: HBc Num1 0.24 S/CO (0.00-0.79); Hepatitis A Antibody IgM 0.15 Index (0-0.79); Hepatitis B Core Antibody Nonreactive (Nonreactive); Hepatitis B Surface Antigen Negative (Negative); ~HepC Num1 0.23 S/CO (0.00-0.79); ~Hepatitis A Antibody IgM Nonreactive (Nonreactive); ~Hepatitis B Surface Antibody NONREACTIVE (Nonreactive); ~Hepatitis C Antibody Nonreactive (Nonreactive)
== END 2025-01-08 13:41 | disposition home or self-care (01) ==
LOC: HO.HHCL 13:40
PROVIDERS: Visit Provider Nurse Practitioner Primary Care
DX: Z00.00 Encounter for general adult medical examination without abnormal findings (principal); Z13.220 Encounter for screening for lipoid disorders
CPT/HCPCS: 36415; 80048; 80061; 84443; 85025; 86704; 86706; 86709; 86803; 87340

== ENCOUNTER 2025-01-20 18:29 | Outpatient (REF) | payer MEDICAID, SELFPAY ==
--- OUTSIDE RECORDS SUMMARY | 2025-01-20 18:31 | XMS_ITS ---
Author Organization [facility] Address [address] [place] [id number] Care Team Providers Care Corn Miller Name Role Phone UZMA REID Unavailable [phone] REASON FOR VISIT Depo Social History Sex Assigned At : Social History Observation Description Sex Assigned At Female Encounters Encounter Location Date Provider Diagnosis [address] [phone] UZMA REID Plan Of Treatment No Information Progress Notes * Qasim AGUDELODOB:1980 (44 yo F)Acc No.[id number]:10/16/2024 Progress Notes Patient:?Qasim AGUDELO Provider:UBALDO REID :1980???Age:43 Y???Sex:Female D ate:10/16/2024 Address:[address] [place], [place] [id number] Subjective: * Chief Complaints: * ???1. Depo. * Medical History:? Objective: * Vitals:? Assessment: Plan: * Treatment: * Billing Information: * Visit Code:? * Procedure Codes:? * Electronic signature of JAGRUTI REID CNM on 01/20/2025 at 06:31 PM EDT Sign off status: Pending * Provider:UBALDO REID Date:?10/16/2024 Generated for Rebekahi stan/Keysha/eTransmitting on:?01/20/2025 06:31 PM EDT
--- OUTSIDE RECORDS SUMMARY | 2025-01-20 18:31 | XMS_ITS ---
Author Organization [facility] Address [address] [phone] Care Team Providers Care Assistant Pressman Name Role Phone FRNAKLINUZMA Cantu Unavailable [phone] Allergies No Known Allergies REASON FOR VISIT [...] 10/28/2024 Encounters Encounter Location Date Provider Diagnosis [address] [id number] 10/28/2024 UZMA REID Encounter for surveillance of [...] Obtaining/revi dolan history Performing medically necessary exam Counseling/Records Analyst rdination of Care Documenting the visit Educating the patient Ordering medication/vivien t/procedures Established Patient: 35220 10 Minutes Plan Of Treatment Medication Medication [...] due 01/21 to 02/10, Reason: depo, annual/pap Medications Administered Medication Instructions Date of Administration Dosage Notes Medroxyprogesterone Acetate 10/28/2024 150 mg Progress Notes * Qasim AGUDELODOB:1980 (44 yo F)Acc No.[id number]:10/28/2024 Progress Notes Patient:?MAGNUS Qasim Provider:UBALDO REID :1980???Age:44 Y???Sex:Female D ate:10/28/2024 Address:[address] [place], [place] [address] [id number] Subjective: * Chief Complaints: * ???Depo * [...] loss.?Breast:?Denies?Breast pain.?Gastrointestinal:?Denies?Nausea.?Psychiatric:?Denies?Mood concerns.? * Medical History:? 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 Medroxyprogesterone Acetate : 150 mg (Route: Intramuscular) given by UZMA REID CNM on left deltoid (Encounter for surveillance of injectable contraceptive) * Procedure Codes:?J1050 Depo 150 mg * Follow Up:?next depo due 01/21 to 02/10 (Reason: depo, annual/pap) * Billing Information: * Visit Code:? 78436 Existing - Minimal Complexity (IN USE). * Procedure Codes:? J1050 Depo 150 mg. * Sign off status: Completed true * Provider:UBALDO REID Date:?10/28/2024 Generated for Gato pierce/Keysha/eTransmitting on:?01/20/2025 06:31 PM EDT History and Physical Notes * HPI (History [...]
--- OUTSIDE RECORDS SUMMARY | 2025-01-20 18:31 | XMS_ITS ---
Author Organization [facility] Address [address] [id number] Care Team Providers Care General Partner Name Role Phone UZMA REID Unavailable [phone] Allergies No Known Allergies Results Component Value Reference Range Notes HBsAg Screen-[id number] Reviewed date:07/20/2024 11:50:07 AM Interpretation:Negative Performing Lab:[facility] [place], [address], [address], [facility], Phone - [phone], Director - [facility] Notes/Report: Clinical Information:SRC:Vaginal HBsAg Screen Negative Negative Hepatitis B Surf Ab Quant-00 6530 Reviewed date:07/20/2024 11:21:32 AM Interpretation:Not Immune Performing Lab:[facility] [place], [address], [address], [facility], Phone - [phone], Director - [facility] Notes/Report: Clinical Information:SRC:Vaginal Hepatitis B Surf Ab Quant <3.5 Immunity>10 mIU /mL Status of Immunity Anti-HBs Level Inconsistent with Immunity 0.0 - 10.0 Consistent with Immunity >10.0 T pallidum Screening [place] -[id number] Reviewed date:07/20/2024 11:50:37 AM Interpretation:Negative Performing Lab:[facility] [place], [address], [address], [facility], Phone - [phone], Director - [facility] Notes/Report: Clinical Information:SRC:Vaginal T pallidum Antibodies Non Reactive Non Reactive HIV Ab/p24 Ag with Reflex-08 [id number] Reviewed date:07/20/2024 11:50:29 AM Interpretation:Negative Performing Lab:[facility] [place], [address], [address], [facility], Phone - [phone], Director - [facility] Notes/Report: Clinical Information:SRC:Vaginal HIV Ab/p24 Ag Screen Non Reactive Non Reactive HIV-1/HIV-2 antibodies and HIV-1 p24 antigen were NOT detected. There is no laboratory evidence of HIV infection. HIV Negative Ct, Ng, Trich vag by [id number] Reviewed date:07/22/2024 09:25:40 AM Interpretation:Negative Performing Lab:[facility] [place], [address], [address], [facility], Phone - [phone], Director - [facility] Notes/Report: Clinical Information:SRC:Vaginal Chlamydia by RUTH Negative Negative Gonococcus by RUTH Negative Negative Trich vag by RUTH Negative Negative HCV Antibody-[id number] Reviewed date:07/20/2024 11:50:17 AM Interpretation:Negative Performing Lab:[facility] [place], [address], [address], [facility], Phone - [phone], Director - [facility] Notes/Report: Clinical Information:SRC:Vaginal Hep C Virus Ab [...] 07/17/2024 Encounters Encounter Location Date Provider Diagnosis [address] [id number] 07/17/2024 UZMA REID Encounter for surveillance of [...] Injection Du e 10/10 to 10/30, Reason: Medications Administered Medication Instructions Date of Administration Dosage Notes Medroxyprogesterone Acetate 07/17/2024 150 mg Progress Notes * Conner ENGLISHdaveDOB:1980 (43 yo F)Acc No.[id number]:07/17/2024 Progress Notes Patient:Qasim MCQUEEN Provider:UBALDO REID :1980???Age:43 Y???Sex:Female D ate:07/17/2024 Address:[address] [place], [place] [id number] Subjective: * Chief Complaints: * ???Depo * HPI: ???Visit Narrative:?Reason for the visit:?Depo visit/ Routine testing?.?Current form of control:?Depo?.?Presenting Symptoms:?No concerns.?LMP:?06/25/2024.?Last date of UPI:?06/09/24.?Aptima/ bw In window Depo today. No concerns. Tx'd for UTI back in April, symptoms have resolved. Would like STI screening today. Concerns for possible outside partners. No symptoms of concern. * ROS:?General/Constitutional:?Comments?Has no complaints.? * Medical History:? 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 Value Reference Range ?T pallidum Antibodies Non Reactive N on Reactive - * This lab was reviewed by BUBBA PURVIS on 07/20/2024 at 11:50 AM EDT ?LAB: Ct, Ng, Trich vag by [id number] (Collection Date & Time - 07/17/2024 09:32 [...] immunodeficiency virus [HIV]?LAB: HIV Ab/p24 Ag with Reflex-[id number] (Collection Date & Time - 07/17/2024 09:32 AM)* ? Value Reference Range ?HIV Ab/p24 Ag Screen Non Reactive No n Reactive - * This lab was reviewed by BUBBA PURVIS on 07/20/2024 at 11:50 AM EDT 4.?Screening for other viral diseases?LAB: HBsAg Screen-[id number] (Collection Date & Time - 07/17/2024 09:32 AM)* ? Value Reference Range ?HBsAg Screen Negative Negative - * This lab was reviewed by BUBBA PURVIS on 07/20/2024 at 11:50 AM EDT ?LAB: Hepatitis B Surf Ab Quant-[id number] (Collection Date & Time - 07/17/2024 09:32 AM)* ? Value Reference Range ?Hepatitis B Surf Ab Quant <3.5 L Immunity>10 - mIU/mL * UZMA REID 07/20/2024 11:21:1 1 AM EDT > Your are not showing immunity to Hep B. You can consider Hep B vaccine if you would like. This can be scheduled with your PCP, pharmacy or [facility]. Please call with questionsThis lab was reviewed by UZMA REID on 07/20/2024 at 11:21 AM EDT ?LAB: HCV Antibody-[id number] (Collection Date & Time - 07/17/2024 09:32 [...] injectable contraceptive) * Procedure Codes:?J1050 Depo 150 [id number] HIV Counseling/Testing - [facility] ONLY * Follow Up:?Next Injection Du e 10/10 to 10/30 * Billing Information: * Visit Code:? 87805 Existing - Medium Complexity (IN USE). * Procedure Codes:? J1050 Depo 150 mg. 13519 HIV Counseling/Testing - [facility] ONLY. * Sign off status: Completed true * Provider:?UZMA REID Date:?07/17/2024 Generated for Gato pierce/Keysha/eTransmitting on:?01/20/2025 06:31 PM [...]
[2025-01-21 02:25] LABS: CT PCR NOT DETECTED (Not Detect.); NG PCR NOT DETECTED (Not Detect.)
[2025-01-21 09:03] LABS: Bacterial Vaginosis PCR POSITIVE (Negative); Candida Group PCR NOT DETECTED (Not Detect); Candida glab krusei PCR NOT DETECTED (Not Detect); Trichomonas vaginalis PCR NOT DETECTED (Not Detect)
[2025-01-28 07:57] LABS: HPV Genotype 16 Negative (Negative); HPV Genotype 18 Negative (Negative); HPV High Risk Positive (Negative)
== END 2025-01-20 18:30 | disposition home or self-care (01) ==
LOC: HO.HHCLNP 18:29
PROVIDERS: Visit Provider Nurse Practitioner Family
DX: Z01.419 Encounter for gynecological examination (general) (routine) without abnormal findings (principal); R87.810 Cervical high risk human papillomavirus (HPV) DNA test positive
CPT/HCPCS: 81515; 87491; 87591; 87626; 88175

== ENCOUNTER 2025-10-14 05:51 | Emergency (ER) | payer OTHER, SELFPAY ==
--- OUTSIDE RECORDS SUMMARY | 2024-10-16 04:00 | XMS_ITS ---
Author Organization [facility] Address [address] [place] [address] Care Team Providers Care Global Cmo Name Role Phone UZMA REID Unavailable [phone] REASON FOR VISIT Depo Social History Sex Assigned At : Social History Observation Description Sex Assigned At Female Encounters Encounter Location Date Provider Diagnosis [facility] [address] [place], [place] [id number] UZMA REID Plan Of Treatment No Information Progress Notes * MAGNUS QasimDOB:1980 (44 yo F)Acc No.[id number]:10/16/2024 Progress Notes Patient: Qasim Curry Provider: Patience REID :1980 A ge:43 Y S ex:Female Date:10/16/2024 Address:[address] [place], [place] [id number] Subjective: * Chief Complaints: * D epo * Electronic signature of JAGRUTI REID CNM on 10/14/2025 at 06:40 AM EST Sign off status: Pending * Provider: Patience REID Date: 12/17/2023 Generated for Gato pierce/Keysha/eTsuryaitting on: 12/15/2024 06:40 AM EST
--- NOTE | ~2025-10-14 | CT_ITS ---
CLINICAL HISTORY: r o renal stone CT abdomen and pelvis without contrast Comparison: None provided Findings: The lung bases are clear. The gallbladder and solid organs are within normal limits. Punctate nonobstructing stones bilaterally. There is a 4 mm stone in the distal right ureter just proximal to the ureterovesical junction No bowel obstruction, pneumoperitoneum, or pneumatosis. No bowel wall thickening or inflammatory change. Unremarkable appearance of the uterus and right ovary. The left ovary contains a 3.9 x 3.1 x 3.6 cm mass. This mass has calcification and macroscopic fat and is most consistent with a teratoma. No fluid collections or adenopathy. No vascular dilation. Unremarkable appendix. The bones are intact. IMPRESSION: 4 mm distal right ureteral stone with upstream hydroureteronephrosis. Incidental note made of a left ovarian teratoma. This document has been electronically signed by: Caro Tate MD on 10/14/2025 08:46:53
[2025-10-14 05:53] VITALS: BP 167/75; PULSE 100; RESP 16; TEMP 37.2; O2SAT 99; BMI 33.1
--- OUTSIDE RECORDS SUMMARY | 2025-10-14 06:40 | XMS_ITS | Patient Health Record ---
Author Organization [facility] Address [address] [place] [address] Care Team Providers Care Proof Machine Operator Supervisor Name Role Phone UZMA REID Unavailable [phone] Allergies No Known Allergies Reason For Referral No Information Medications Medication SIG (Take, Route, Frequency, Duration) Notes Start Date End Date Status Nitrofurantoin Monohyd Macro 100 MG Capsule 1 capsule Orally Twice a day (every 12 hrs(; Duration: 7 days 04/22/2024 Not-Taking/PRN Depo-Provera 150 MG/ML Suspension 1 mL Intramuscular Every 13-15 weeks; Duration: 91 days Active Social History Sex Assigned At : Social History Observation Description Sex Assigned At Female Social History HIV Risk Assessment Social Info Question Answer Notes Additional Questions Is an HIV Risk Asse ssment being conducted? No Reproductive Life Plan: Social Info Question Answer Notes Reproductive Life Plan: Do you want to have chil dren? No, I don't want to have children How sure are you that you will be able to use your control method without any problems? Very sure People's plans change. Is it possible you or your partner could ever decide to become ? No Human Trafficking: Social Info Question Answer Notes Human Trafficking Experienced: No PrEP for HIV: Social Info Question Answer Notes PrEP for HIV Is the client intere sted in beginning/continuing PrEP for HIV? No Sexual History: Social Info Question Answer Notes Sexual History: Sexual History Reviewed: Partner s, Practices, Protection/Past STIs Currently sexually active? Yes Sexually active with: Men Number of male partners 1 intermediate partner Your sexual activities include: oral intercourse, vaginal intercourse Do you use condoms? No Date of last unprotected intercourse: 10/05/2024 Number of partners in past 3 months: 1 Number of partners in past year: 1 Does your partner(s) currently have any STIs? No Counseling Provided: Social Info Question Answer Notes Counseling Provided Please indicate the length of time, in minutes, that counseling was provided. 5 Counseling Was Provided By: alena Drugs/Alcohol: Social Info Question Answer Notes Drug/Alcohol Use Do you or have you used drugs? No Do you or have you used alcohol? Yes, currently Occasional use Food Access: Social Info Question Answer Notes Food Access The Client's current access to food is Secure Food Access Relationships: Social Info Question Answer Notes Relationships Has the client exper ienced any of the following: Client has never experienced harmful relationships Housing Social Info Question Answer Notes Housing The client's current living situation is: stable housing Tobacco Use: Social Info Question Answer Notes Tobacco Use: Do you/have you used tobacco? No Tobacco Smoking Status Unknown if ever smoked Section Notes: Clt declines bw Aptima/ declines bw Aptima/ bw/ pt Aptima/ bw Declines aptma Vital Signs Blood pressure diastolic 54 mm Hg 10/28/2024 Height 60 in 10/28/2024 Blood pressure systolic 120 mm Hg 10/28/2024 Weight 166.2 lbs 10/28/2024 BMI 32.46 kg/m2 10/28/2024 Encounters Encounter Location Date Provider Diagnosis [address] [id number] 10/28/2024 UZMA REID Encounter for surveillance of [...] Obtaining/revi dolan history Performing medically necessary exam Counseling/Swimming Instructor rdination of Care Documenting the visit Educating the patient Ordering medication/vivien t/procedures Established Patient: 49259 10 Minutes Plan Of Treatment No Information Insurance Providers Payer Name Payer Address Payer Phone Subscriber Number Group Number Insured Name Patient Relationship to Insured Coverage Start Date Coverage End Date [place] ATT CLAIMS [address] [place] [id number] Qasim English Self - patient is the [...]
[2025-10-14 07:03] LABS: MANUAL DIFF FLAG NO
[2025-10-14 07:05] LABS: Hematocrit 43.3 % (37.0-47.0); Hemoglobin 14.4 g/dl (12.0-16.0); Imm Gran Abs Auto 0.04 X10*3/uL (0.00-0.03); Imm Gran Pct Auto 0.4 % (0.0-0.4); Lymphocytes Absolute Auto 1.7 X10*3/uL (1.2-4.9); Mean Corpuscular HGB Conc 33.3 g/dl (31.0-35.0); Mean Corpuscular Hemoglobin 29.6 pg (27.0-33.0); Mean Corpuscular Volume 89.1 fL (80.0-98.0); NRBC Abs Auto 0.000 X10*3/uL (0.0-0.012); NRBC Pct Auto 0.0 /100WBC (0.0-0.2); Platelet Count 217 X10*3/uL (160-400); Red Blood Count 4.86 X10*6/uL (4.20-5.50); White Blood Count 10.1 X10*3/uL (4.8-10.8)
[2025-10-14 07:45] LABS: Appearance Urine Cloudy; Glucose Urine UA Negative (Negative); PH 5.5 (5.0-9.0); Specific Gravity - Urine >= 1.030 (1.005-1.025); UMIC TRIGGER UACC YES
--- NOTE | 2025-10-14 07:45 | ED_ITS ---
HPI - Female Genitourinary General Chief complaint: Urogenital-Female Stated complaint: right side pain Time Seen by Provider: 10/14/25 07:02 History of Present Illness ED Provider: Stephany Victoria NP HPI Narrative: 44-year-old female who denies any significant medical history presents to the ED for evaluation reporting acute onset right-sided flank pain that occurred yesterday, as well as some vaginal pressure. She endorses some dysuria, without hematuria, urgency, frequency. Does report that the pain wraps from the right flank to now the RLQ of the abdomen/groin. Describes it as sharp. Denies any vaginal bleeding, discharge. Denies chance of . LMP 10/04/2025. No fever, chills. No recent illnesses. No upper abdominal pain. Some nausea without vomiting, no diarrhea or constipation. No chest pain or pressure, shortness of breath. Related Data Previous Rx's ?Medication ?Instructions ?Recorded cephalexin 500 mg capsule 1,000 mg (2 x 500 mg) PO BID 5 10/14/25 days #20 caps ondansetron 4 mg disintegrating 4 mg PO Q8H PRN nausea and 10/14/25 tablet vomiting #14 tabs tamsulosin 0.4 mg capsule 0.4 mg PO DAILY 14 days #14 caps 10/14/25 Allergies Allergy/AdvReac Type Severity Reaction Status Date / Time No Known Allergies (NKA) Allergy Verified 10/14/25 05:58 Review of Systems 2 Review of Systems: ROS is otherwise negative unless mentioned in HPI. [facility] Social History Social History (System 08/29/23 @ 13:12 by Ashlee Valle) Smoked in Last 30 Days: No Use of substances other than those prescribed or required for medical reasons: No Advance Directives: No Advance Directives Information Provided: Yes Patient : No Physical Exam 2 Exam: Exam: Nursing notes and vital signs reviewed. Constitutional: Well-appearing, NAD. Alert. Oriented X3. ENT: Pharynx normal. Neck: Normal inspection. Neck supple. CVS: Normal heart rate and rhythm. Pulses normal. Respiratory: No respiratory distress. Breath sounds normal. Abdomen: Soft, nontender, nondistended. R CVA tenderness. Skin: Skin warm and dry. Normal skin color. Extremities: No lower extremity edema. Neuro: Oriented X 3. No motor deficit. Vital Signs: Vital Signs: Last Vital Signs Temp 98.9 F 10/14/25 05:53 Pulse 100 10/14/25 05:53 Resp 16 10/14/25 05:53 BP 167/75 H 10/14/25 05:53 Pulse Ox 99 10/14/25 05:53 O2 Del Method Room Air 10/14/25 05:53 BMI result Body Mass Index 33.1 Medications Administered Discontinued Medications Generic Name Dose Route Start Last Admin Trade Name Garfield PRN Reason Stop Dose Admin Sodium Chloride 1,000 mls @ 999 mls/hr 10/14/25 07:08 10/14/25 07:51 Ns IV 10/14/25 08:08 999 mls/hr .Q1H1M ONE Administration Ceftriaxone Sodium 1 gm/ 50 mls @ 100 mls/hr 10/14/25 07:50 10/14/25 07:58 Sodium Chloride IV 10/14/25 08:19 100 mls/hr ONCE ONE Administration Ketorolac Tromethamine 15 mg 10/14/25 07:08 10/14/25 07:50 Ketorolac Tromethamine 15 Mg/Ml Vial IVPUSH 10/14/25 07:09 15 mg ONCE ONE Administration Ondansetron HCl 4 mg 10/14/25 07:08 10/14/25 07:51 Ondansetron Hcl 4 Mg/2 Ml Vial IVPUSH 10/14/25 07:09 4 mg ONCE ONE Administration Medical Decision Making Medical Decision Making MDM Narrative: On my exam, she is overall well-appearing. She does have right-sided CVA tenderness on my exam however, concerning for possibly underlying pyelonephritis, renal stone. Initial CBCs without leukocytosis, currently pending BMP, urinalysis. Plan to administer antiemetic, pain control, IV fluid bolus while waiting for labs, and reassess. 7:51 am-- Her urinalysis does show a UTI, positive nitrites. There was also small blood, and given the CVA tenderness as well as pain to the groin, we will obtain CT imaging of the abdomen and pelvis without contrast to observe for renal stone. 9:00 am-- CT reveals evidence of a 4 mm distal right ureteral stone with upstream hydronephrosis. Creatinine level is 0.88, the stone is not obstructive. She is tolerating p.o., and overall appears comfortable. She can follow up with Urology outpatient in the next several days, there is no indication for inpatient admission at this time. I discussed with the patient, and she is agreeable. I discussed this with Urology on-call Dr. Fernandez, who was agreeable as well as for 5 days of antibiotics. 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 This can be followed outpatient by OBGYN. Patient is agreeable, and expressed understanding. Patient expressed understanding with plan of care. Given return precautions to the ED. Differential Diagnosis Differential Diagnoses: The differential diagnosis associated with the presentation includes Renal stone, cystitis, pyelonephritis, musculoskeletal strain or injury Admission/Observation Consideration of admission/observation: Escalation of care including admission/observation considered (Not indicated) Consult Healthcare Provider Management of the patient was discussed with: [employer] [facility] Dr. Fernandez Lab Data MDM Lab Attestation statement: I reviewed the patient's lab results. (Reassuring overall.) 10/14/25 06:56 10/14/25 06:56 Labs: Lab Results 10/14/25 10/14/25 Range/Units 06:56 07:25 WBC 10.1 (4.8-10.8) X10*3/uL RBC 4.86 (4.20-5.50) X10*6/uL Hgb 14.4 (12.0-16.0) g/dl Hct 43.3 (37.0-47.0) % MCV 89.1 (80.0-98.0) fL MCH 29.6 (27.0-33.0) pg MCHC 33.3 (31.0-35.0) g/dl RDW 12.5 (11.0-16.0) % Plt Count 217 (160-400) X10*3/uL MPV 10.4 (9.4-12.3) fL Immature Gran % (Auto) 0.4 (0.0-0.4) % Neut % (Auto) 73.2 H (45-73) % Lymph % (Auto) 17.2 L (20-40) % [place] % (Auto) 8.1 (2-11) % Eos % (Auto) 0.7 (0-4) % Baso % (Auto) 0.4 (0-2) % Lymph # (Auto) 1.7 (1.2-4.9) X10*3/uL [place] # (Auto) 0.8 (0.1-1.2) X10*3/uL Eos # (Auto) 0.1 (0.0-0.4) X10*3/uL Baso # (Auto) 0.0 (0.0-0.2) X10*3/uL Abs Immat Gran (auto) 0.04 H (0.00-0.03) X10*3/uL Absolute Neuts (auto) 7.4 (2.0-8.3) x10*3/uL Absolute Nucleated RBC 0.000 (0.0-0.012) X10*3/uL Nucleated RBC % (auto) 0.0 (0.0-0.2) /100WBC Sodium 143 (135-145) mmol/L Potassium 4.1 (3.3-5.1) mmol/L Chloride 109 H (96-108) mmol/L Carbon Dioxide 27 (22-29) mmol/L Anion Gap 11 L (12-20) BUN 15 (9-16) mg/dL Creatinine 0.88 (0.5-1.4) mg/dL Estim Creat Clear Calc 75.5 Estimated GFR > 60 Random Glucose 119 H (60-115) mg/dL Calcium 9.9 D (8.4-10.2) mg/dL Total Bilirubin 0.2 (0.0-1.0) mg/dL AST 25 (5-31) U/L ALT 27 (0-31) U/L Alkaline Phosphatase 80 (39-117) U/L Total Protein 7.7 (6.5-8.0) g/dL Albumin 4.5 (3.5-5.0) g/dL Lipase 10 (8-78) U/L Beta HCG, Quant < 2 mIU/mL Urine Color Yellow Urine Appearance Cloudy Urine pH 5.5 (5.0-9.0) Ur Specific [place] >= 1.030 H (1.005-1.025) Urine Protein 30 (1+) H (Neg-Trace) mg/dL Urine Glucose (UA) Negative (Negative) mg/dL Urine Ketones Trace (Negative) mg/dL Urine Blood Small (1+) H (Negative) Urine Nitrite Positive H (Negative) Ur Leukocyte Esterase Negative (Negative) Urine RBC 3-5 H (0-2) /HPF Urine WBC 11-20 H (0-5) /HPF Ur Squamous Epith Cells 6-10 (0-2) /HPF Calcium Oxalate Crystal Present Urine Bacteria 4+ (None Seen) Hyaline Casts 3-5 (0-2) /LPF Urine Test NEGATIVE (NEGATIVE) Independent Interpretation I performed an independent interpretation of an: CT Scan Interpretation: I have reviewed the patient's imaging and agree with the radiologist's findings. Radiology Impression Discussion of test interpretation with radiology: I have reviewed the radiologist's reading. Radiologist Impression: IMPRESSION: 4 mm distal right ureteral stone with upstream hydroureteronephrosis. Incidental note made of a left ovarian teratoma. External Record Review External record reviewed: Outside ED record Prescription Management I considered prescription management with: Pain Medication Declined need Social Determinants Patient?s care significantly limited by Social Determinants of Health including: Problems related to primary support group Discharge Plan Discharge Clinical Impression: Renal calculus, right Urinary tract infection Qualifiers: Urinary tract infection type: acute cystitis Hematuria presence: with hematuria Qualified Code(s): N30.01 - Acute cystitis with hematuria Patient Disposition: Home, Self-Care Instructions: Kidney Stones (ED), Urinary Tract Infection in Women (DC) Additional Instructions: You were seen in the ER today for evaluation of right-sided flank pain, as well as urinary symptoms. The CT you had of your abdomen, pelvis shows evidence of a 4 mm kidney stone with upstream hydroureteronephrosis, meaning swelling of the kidney and ureter. It is important that you follow up with Urology outpatient. For the short term, I have prescribed you an antibiotic called Keflex all please take this medication twice per day as directed. I have also prescribed you Zofran, which can be used as needed for nausea and vomiting, and tamsulosin, which should be taken daily. Of note, the CAT scan also showed a ovarian teratoma on the left side. Please follow up with OBGYN outpatient. If any new, worsening complaints at any time, please return back to the ED for additional assessment. Prescriptions: New cephalexin 500 mg capsule 1,000 mg PO BID 5 Days Qty: 20 0RF tamsulosin 0.4 mg capsule 0.4 mg PO DAILY 14 Days Qty: 14 0RF ondansetron 4 mg tablet,disintegrating 4 mg PO Q8H PRN (Reason: nausea and vomiting) Qty: 14 0RF Referrals: [facility] [[facility] Group] Stevo Fernandez MD [Physician, Urology] Center,[facility] [Primary Care Provider, Medical] Print Language: [place] Citizen
[2025-10-14 07:46] LABS: UPreg QC Valid YES
[2025-10-14 07:52] LABS: Alanine Aminotransferase 27 U/L (0-31); Albumin Level 4.5 g/dL (3.5-5.0); Alkaline Phosphatase 80 U/L (39-117); Anion Gap 11 (12-20); Aspartate Amino Transferase 25 U/L (5-31); Blood Urea Nitrogen 15 mg/dL (9-16); Calcium 9.9 mg/dL (8.4-10.2); Carbon Dioxide 27 mmol/L (22-29); Chloride 109 mmol/L (96-108); Creatinine Clr Calc Pharmacy 75.5; Estimated Glomerular Filt Rate > 60; Lipase 10 U/L (8-78); Potassium 4.1 mmol/L (3.3-5.1); Sodium 143 mmol/L (135-145); Total Protein 7.7 g/dL (6.5-8.0)
[2025-10-14 07:54] LABS: UACC Culture Trigger YES
--- NOTE | 2025-10-14 08:16 | PC.NURSE ---
patient a&ox3, iv inserted, labs previously drawn, urine obtained, ivf hung per order, pt medicated for nausea/pain, additionally given abx for + UA. pt to ct scan, call torres within reach, plan of care ongoing
[2025-10-14 09:44] VITALS: BP 156/70; PULSE 92; RESP 16; TEMP 36.8; O2SAT 99
== END 2025-10-14 09:45 | disposition home or self-care (01) ==
PROVIDERS: Nurse Practitioner; Emergency Provider Emergency Medicine
DX: N20.0 Calculus of kidney (principal); N30.01 Acute cystitis with hematuria; R10.31 Right lower quadrant pain; R10.23 Pelvic and perineal pain bilateral; R30.0 Dysuria; R11.0 Nausea
CPT/HCPCS: 36415; 74176; 80053; 81001; 81025; 83690; 84702; 85025; 87086; 87088; 87186; 96361; 96365; 96375; 99285; J0696; J1885; J2405

== ENCOUNTER → 2025-10-14 07:50 | Outpatient (BNV) | payer SELFPAY | PROVIDERS: Emergency Provider Emergency Medicine; Visit Provider Radiology Diagnostic Radiology | DX: N13.2 Hydronephrosis with renal and ureteral calculous obstruction (principal) | CPT/HCPCS: 74176 ==